=== PATIENT | male | born 1970 | race Caucasian/White ===

== ENCOUNTER 2022-01-19 09:17 | Observation (INO) ==
[2022-01-19] MEDS ORDERED: 0.9 % Sodium Chloride 1,000 ML IVC ONE (09:36)
[2022-01-19 09:52] LABS: Basophils # 0.1 K/mcL (0.0-0.2); Basophils % 0.9 %; Eosinophils # 0.4 K/mcL (0.0-0.6); Eosinophils % 3.5 %; Hematocrit 41.9 % (37.5-50.1); Hemoglobin 14.2 g/dL (12.9-16.9); Immature Granulocytes % 0.3 % (0-4); Lymphocytes % 17.3 %; Mean Corpuscular HGB Conc 33.9 g/dL (31.6-35.5); Mean Corpuscular Hemoglobin 28.1 pg (28.0-33.3); Mean Corpuscular Volume 82.8 fL (83.0-100.0); Mean Platelet Volume 9.9 fL (9.4-12.4); Monocytes # 0.6 K/mcL (0.0-1.3); Monocytes % 5.6 %; Neutrophils # 8.3 K/mcL (1.6-8.9); Platelet Count 276 K/mcL (140-400); Red Blood Count 5.06 M/mcL (4.19-5.50); Segmented Neutrophils % 72.4 %; White Blood Count 11.5 K/mcL (4.3-11.1)
[2022-01-19 10:00] LABS: INR 1.1; Prothrombin Time 11.7 Seconds (9.4-12.1)
[2022-01-19 10:02] LABS: Activated Partial Thrombo Time 32.1 Seconds (26.0-36.0)
[2022-01-19 10:14] LABS: Calcium 9.1 mg/dL (8.6-10.3)
[2022-01-19 10:26] LABS: Troponin I 0.14 ng/mL (< 0.04)
[2022-01-19] MEDS ORDERED: Aspirin 325 MG TABLET PO ONE (10:53)
[2022-01-19 13:41] LABS: Magnesium 2.1 mg/dL (1.6-2.6)
[2022-01-19] MEDS ORDERED: Ondansetron 4 MG/2 ML VIAL IVP PRN (14:10)
[2022-01-19] MEDS ORDERED: Naloxone 0.4 MG/ML INJ IVP PRN (14:10)
[2022-01-19] MEDS ORDERED: Nicotine 21 MG PATCH.TD24 TD SCH (14:15)
[2022-01-19 15:23] VITALS: O2SAT 94
[2022-01-19] MEDS ORDERED: carvediloL 25 MG TABLET PO SCH (15:57)
[2022-01-19 19:36] VITALS: BP 153/88; PULSE 69; TEMP 97.7
[2022-01-20] MEDS ORDERED: Aspirin Enteric Coated 81 MG Tablet PO SCH (09:00)
== END 2022-01-19 23:11 | disposition left against medical advice (07) ==
LOC: EMEROOARM 09:17 → 3BNU 09:17
PROVIDERS: ADMIT Internal Medicine; ATTEND Internal Medicine

== ENCOUNTER 2022-02-24 01:08 | Inpatient (IN) ==
[2022-02-24] MEDS ORDERED: Ondansetron 4 MG/2 ML VIAL IVP PRN (05:56)
[2022-02-24] MEDS ORDERED: Naloxone 0.4 MG/ML INJ IVP PRN (05:56)
[2022-02-24] MEDS ORDERED: Perflutren Lipid Microsphere 1.3 ML in 0.9 % Sodium Chloride 8.7 ML IVP PRN (05:59)
[2022-02-24] MEDS ORDERED: Acetaminophen 325 MG TABLET PO PRN (06:00)
[2022-02-24] MEDS ORDERED: Ipratropium/Albuterol Neb 3 ML IH PRN (06:02)
[2022-02-24] MEDS ORDERED: *HR* Heparin 5,000 UNIT/ML VIAL IVP PRN ×2 (06:04)
[2022-02-24] MEDS: Heparin 25,000UNIT/250ML 1/2NS 25,000 UNIT/250 ML IV.SOLN IVC SCH (06:34)
[2022-02-24 08:30] LABS: Basophils % 0.3 %; Hematocrit 35.8 % (37.5-50.1); Immature Granulocytes % 0.3 % (0-4); Lymphocytes # 0.2 K/mcL (0.6-4.6); Lymphocytes % 3.2 %; Mean Corpuscular HGB Conc 33.5 g/dL (31.6-35.5); Mean Corpuscular Hemoglobin 27.6 pg (28.0-33.3); Mean Corpuscular Volume 82.3 fL (83.0-100.0); Mean Platelet Volume 10.6 fL (9.4-12.4); Monocytes # 0.1 K/mcL (0.0-1.3); Monocytes % 1.5 %; Neutrophils # 6.4 K/mcL (1.6-8.9); Platelet Count 205 K/mcL (140-400); Red Blood Count 4.35 M/mcL (4.19-5.50); Red Cell Distribution Width 15.2 % (11.5-14.5); Segmented Neutrophils % 94.7 %; White Blood Count 6.8 K/mcL (4.3-11.1)
[2022-02-24 08:37] LABS: INR 1.2; Prothrombin Time 13.1 Seconds (9.4-12.1)
[2022-02-24 09:10] LABS: Platelet Estimate Normal (Normal)
[2022-02-24 09:26] LABS: Chol/HDL Ratio 2.8 (0-4.9); Magnesium 1.9 mg/dL (1.6-2.6); Phosphorous 2.7 mg/dL (2.7-4.5)
[2022-02-24 09:42] LABS: Albumin 3.5 g/dL (3.5-5.7); Albumin/Globulin Ratio 1.2 (1.1-2.2); Bilirubin,Direct 0.1 mg/dL (0.0-0.2); Bilirubin,Indirect 0.3 mg/dL (0.0-1.0); Bilirubin,Total 0.4 mg/dL (0.3-1.0); Calcium 8.5 mg/dL (8.6-10.3); Globulin 2.9 g/dL (2.4-3.5); Potassium 3.2 mEq/L (3.5-5.1); Thyroid Stimulating Hormone 0.642 mcIU/mL (0.340-5.600); Total Protein 6.4 g/dL (6.4-8.9); Troponin I 0.16 ng/mL (< 0.04)
[2022-02-24 10:58] LABS: Potassium,Urine 23.4 mEq/L; Sodium, Urine 18.9 mEq/L
[2022-02-24 11:05] LABS: Bilirubin,Urine Negative (Negative); Blood,Urine Negative (Negative); Clarity,Urine Clear (Clear); Color,Urine Light-Yellow (Yellow); Glucose,Urine (UA) 70 mg/dL (Normal); Ketones,Urine Negative (Negative); Leukocyte Esterase,Urine Negative (Negative); Mucus,Urine Few per lpf (None-Few); Nitrite,Urine Negative (Negative); Protein,Urine 100 mg/dL (Neg-Trace); RBC,Urine 0-3 per hpf (0-3); Specific Gravity,Urine 1.013 (1.010-1.025); Urobilinogen,Urine Normal (Normal); WBC,Urine 0-3 per hpf (0-3)
[2022-02-24] MEDS ORDERED: Furosemide 40 MG/4 ML VIAL IVP ONE (12:45)
[2022-02-24] MEDS: hydrALAZINE 25 MG TABLET PO SCH ×2 (14:45→19:34)
[2022-02-24] MEDS ORDERED: carvediloL 6.25 MG TABLET PO SCH (17:00)
[2022-02-24] MEDS: Furosemide 40 MG TABLET PO SCH (19:34)
[2022-02-24] MEDS: NIFEdipine XL (24 HR) 60 MG TAB.ER.24 PO SCH (19:34)
[2022-02-24] MEDS ORDERED: Benzonatate 100 MG CAPSULE PO PRN (19:46)
[2022-02-25 05:39] LABS: Basophils % 0.2 %; Eosinophils % 0.1 %; Hematocrit 34.8 % (37.5-50.1); Hemoglobin 11.3 g/dL (12.9-16.9); Immature Granulocytes % 0.4 % (0-4); Lymphocytes # 0.8 K/mcL (0.6-4.6); Lymphocytes % 8.9 %; Mean Corpuscular HGB Conc 32.5 g/dL (31.6-35.5); Mean Corpuscular Hemoglobin 26.7 pg (28.0-33.3); Mean Corpuscular Volume 82.1 fL (83.0-100.0); Mean Platelet Volume 10.2 fL (9.4-12.4); Monocytes # 0.7 K/mcL (0.0-1.3); Monocytes % 7.8 %; Neutrophils # 7.5 K/mcL (1.6-8.9); Platelet Count 203 K/mcL (140-400); Red Blood Count 4.24 M/mcL (4.19-5.50); Red Cell Distribution Width 15.4 % (11.5-14.5); Segmented Neutrophils % 82.6 %
[2022-02-25 05:45] LABS: Calcium 8.6 mg/dL (8.6-10.3); Potassium 3.2 mEq/L (3.5-5.1)
[2022-02-25] MEDS: Aspirin Enteric Coated 81 MG Tablet PO SCH (08:26)
[2022-02-25] MEDS: carvediloL 25 MG TABLET PO SCH ×2 (08:26→18:09)
[2022-02-25] MEDS: Furosemide 40 MG TABLET PO SCH (08:26)
[2022-02-25] MEDS: NIFEdipine XL (24 HR) 60 MG TAB.ER.24 PO SCH (08:26)
[2022-02-25] MEDS: hydrALAZINE 25 MG TABLET PO SCH ×3 (08:27→20:32)
[2022-02-25] MEDS ORDERED: NIFEdipine XL (24 HR) 30 MG TAB.ER.24 PO SCH (09:00)
[2022-02-25] MEDS ORDERED: NIFEdipine XL (24 HR) 60 MG TAB.ER.24 PO SCH (09:00)
[2022-02-25] MEDS ORDERED: Albuterol 2.5 MG/3 ML NEBULIZER IH PRN (12:08)
[2022-02-25] MEDS ORDERED: *HR* Heparin 5,000 UNIT/ML VIAL IVP PRN (12:19)
[2022-02-25 13:07] LABS: Troponin I 0.17 ng/mL (< 0.04)
[2022-02-25] MEDS: Ipratropium/Albuterol Neb 3 ML IH SCH ×3 (15:39→23:40)
[2022-02-25] MEDS: *HR* Heparin 5,000 UNIT/ML VIAL SQ SCH (18:09)
[2022-02-25] MEDS ORDERED: carvediloL 6.25 MG TABLET PO ONE (18:47)
[2022-02-25] MEDS: Furosemide 40 MG/4 ML VIAL IVP SCH (20:32)
[2022-02-25 22:04] LABS: Adenovirus Not Detected (Not Detect); Bordetella Pertussis Not Detected (Not Detect); Chlamydophila pneumoniae Not Detected (Not Detect); Coronavirus 229E Not Detected (Not Detect); Coronavirus HKU1 Not Detected (Not Detect); Coronavirus NL63 Not Detected (Not Detect); Coronavirus OC43 Not Detected (Not Detect); Human Metapneumovirus Not Detected (Not Detect); Human Rhinovirus/Enterovirus Not Detected (Not Detect); Influenza A Subtype 2009 H1 Not Detected (Not Detect); Influenza B Not Detected (Not Detect); Mycoplasma pneumoniae Not Detected (Not Detect); Parainfluenza Virus 1 Not Detected (Not Detect); Parainfluenza Virus 2 Not Detected (Not Detect); Parainfluenza Virus 3 Not Detected (Not Detect); Parainfluenza Virus 4 Not Detected (Not Detect); Respiratory Syncytial Virus Not Detected (Not Detect); SARS-CoV-2 Not Detected (Not Detect)
[2022-02-26] MEDS: Ipratropium/Albuterol Neb 3 ML IH SCH ×5 (03:19→20:39)
[2022-02-26] MEDS: *HR* Heparin 5,000 UNIT/ML VIAL SQ SCH ×2 (05:41→16:42)
[2022-02-26 07:19] LABS: Basophils % 0.6 %; Eosinophils # 0.2 K/mcL (0.0-0.6); Eosinophils % 2.5 %; Hematocrit 40.7 % (37.5-50.1); Immature Granulocytes % 0.3 % (0-4); Lymphocytes # 1.2 K/mcL (0.6-4.6); Lymphocytes % 16.9 %; Mean Corpuscular HGB Conc 32.7 g/dL (31.6-35.5); Mean Corpuscular Hemoglobin 26.9 pg (28.0-33.3); Mean Corpuscular Volume 82.2 fL (83.0-100.0); Mean Platelet Volume 9.9 fL (9.4-12.4); Monocytes # 0.6 K/mcL (0.0-1.3); Monocytes % 8.3 %; Neutrophils # 5.2 K/mcL (1.6-8.9); Platelet Count 241 K/mcL (140-400); Red Blood Count 4.95 M/mcL (4.19-5.50); Red Cell Distribution Width 15.5 % (11.5-14.5); Segmented Neutrophils % 71.4 %; White Blood Count 7.2 K/mcL (4.3-11.1)
[2022-02-26 07:23] LABS: Hemoglobin 13.3 g/dL (12.9-16.9)
[2022-02-26 07:37] LABS: Calcium 8.8 mg/dL (8.6-10.3)
[2022-02-26] MEDS: carvediloL 25 MG TABLET PO SCH ×2 (08:50→16:42)
[2022-02-26] MEDS: hydrALAZINE 25 MG TABLET PO SCH ×3 (08:50→20:06)
[2022-02-26] MEDS: Aspirin Enteric Coated 81 MG Tablet PO SCH (08:51)
[2022-02-26] MEDS: Furosemide 40 MG/4 ML VIAL IVP SCH (08:51)
[2022-02-26] MEDS ORDERED: predniSONE 20 MG TABLET PO SCH (09:00)
[2022-02-26] MEDS ORDERED: NIFEdipine XL (24 HR) 30 MG TAB.ER.24 PO SCH (09:00)
[2022-02-26] MEDS ORDERED: NIFEdipine XL (24 HR) 30 MG TAB.ER.24 PO ONE (09:03)
[2022-02-26 10:44] LABS: Estimated Average Glucose 131 mg/dl; Hemoglobin A1C 6.2 %
[2022-02-26] MEDS: Furosemide 40 MG TABLET PO SCH (16:42)
[2022-02-27] MEDS: Ipratropium/Albuterol Neb 3 ML IH SCH ×4 (00:11→11:13)
[2022-02-27] MEDS ORDERED: *HR* Labetalol 20 MG/4 ML SYRINGE IVP ONE (00:14)
[2022-02-27 03:01] VITALS: PULSE 80
[2022-02-27] MEDS: Heparin 25,000UNIT/250ML 1/2NS 25,000 UNIT/250 ML IV.SOLN IVC SCH (04:24)
[2022-02-27 04:35] LABS: Basophils % 0.3 %; Hematocrit 39.9 % (37.5-50.1); Hemoglobin 13.3 g/dL (12.9-16.9); Immature Granulocytes % 0.5 % (0-4); Lymphocytes # 1.1 K/mcL (0.6-4.6); Lymphocytes % 13.9 %; Mean Corpuscular HGB Conc 33.3 g/dL (31.6-35.5); Mean Corpuscular Volume 81.1 fL (83.0-100.0); Mean Platelet Volume 9.6 fL (9.4-12.4); Monocytes # 0.7 K/mcL (0.0-1.3); Monocytes % 9.5 %; Neutrophils # 5.9 K/mcL (1.6-8.9); Platelet Count 262 K/mcL (140-400); Red Blood Count 4.92 M/mcL (4.19-5.50); Red Cell Distribution Width 15.2 % (11.5-14.5); Segmented Neutrophils % 75.8 %; White Blood Count 7.7 K/mcL (4.3-11.1)
[2022-02-27 04:55] LABS: Magnesium 1.8 mg/dL (1.6-2.6); Phosphorous 4.4 mg/dL (2.7-4.5)
[2022-02-27 04:56] LABS: Calcium 9.1 mg/dL (8.6-10.3); Potassium 3.1 mEq/L (3.5-5.1)
[2022-02-27] MEDS: *HR* Heparin 5,000 UNIT/ML VIAL SQ SCH (05:04)
[2022-02-27 07:32] VITALS: BP 205/97; TEMP 97.7
[2022-02-27] MEDS ORDERED: NIFEdipine XL (24 HR) 30 MG TAB.ER.24 PO SCH (09:00)
[2022-02-27] MEDS ORDERED: cloNIDine HCL 0.1 MG TABLET PO SCH (09:00)
[2022-02-27] MEDS: hydrALAZINE 25 MG TABLET PO SCH (09:26)
[2022-02-27] MEDS: Furosemide 40 MG TABLET PO SCH (09:26)
[2022-02-27] MEDS: carvediloL 25 MG TABLET PO SCH (09:26)
[2022-02-27] MEDS: Aspirin Enteric Coated 81 MG Tablet PO SCH (09:26)
[2022-02-27 10:08] VITALS: O2SAT 94
== END 2022-02-27 12:46 | disposition home or self-care (01) | DRG 194 ==
LOC: 3NENU → SUATTDRO 05:40
PROVIDERS: ADMIT Internal Medicine; ATTEND Family Medicine